=== PATIENT | male | born 1965 | race Caucasian/White ===

== ENCOUNTER 2020-04-29 10:22 | Outpatient (REF) | payer BC, SELFPAY ==
[2020-05-06 15:38] LABS: URO-Brushite 24 Hr Urine 0.22 (<2.00); URO-Calcium 24 Hr Urine 311 mg/day (<250.0); URO-Calcium Oxalat 24 Hr Urine 1.03 (<2.00); URO-Citric Acid 24 Hr Urine 1325 mg/day (>320); URO-Creatinine 24 Hr Urine 2148 mg/day (800-2000); URO-Magnesium 24 Hr Urine 118 mg/day (>60.0); URO-Oxalate 24 Hr Urine 35 mg/day (<45); URO-Phosphorus 24 Hr Urine 1423 mg/day (<1100); URO-Potassium 24 Hr Urine 62 mEq/day (19-135); URO-Sodium 24 Hr Urine 140 mEq/day (<200); URO-Sodium Urate 24 Hr Urine 0.49 (<2.00); URO-Sulfate 24 Hr Urine 19 mmol/day (<30); URO-Total Volume 3.17 L/day (>2.00); URO-Uric Acid 24 Hr Urine 3.91 (<2.00); URO-Uric Acid 24 Hr Urine 935 mg/day (<700); URO-pH 24 Hr Urine 5.2 (5.5-7.0)
== END 2020-04-29 10:23 | disposition home or self-care (01) ==
LOC: HO.10HDLNP 10:22
PROVIDERS: PCP Urology; Visit Provider Urology
DX: N40.1 Benign prostatic hyperplasia with lower urinary tract symptoms (principal); N13.8 Other obstructive and reflux uropathy; N20.0 Calculus of kidney
CPT/HCPCS: 82340; 82507; 82570; 83735; 83945; 83986; 84105; 84133; 84300; 84392; 84560

== ENCOUNTER 2020-05-02 10:18 | Outpatient (REF) | payer BC, SELFPAY ==
--- NOTE | 2020-05-02 | US_ITS ---
EXAMINATION: Renal ultrasound CLINICAL INFORMATION: Nephrolithiasis COMPARISON: KUB January 2018 TECHNIQUE: Grayscale and color imaging of the kidneys FINDINGS: The right kidney measures 13.5 x 7.2 x 7.8 cm. There is compensatory hypertrophy of the right kidney. Renal cortical thickness and echogenicity is normal. There is a 1.2 x 1.1 x 1.5 cm simple cyst in the midpole. No renal stone, hydronephrosis or mass is seen. The left kidney has been removed. IMPRESSION: Small right renal cyst. No right renal stone seen. Surgically absent left kidney.
== END 2020-05-02 10:19 | disposition home or self-care (01) ==
LOC: HO.US 10:18
PROVIDERS: Visit Provider Urology
DX: N20.0 Calculus of kidney (principal)
CPT/HCPCS: 76775

== ENCOUNTER → 2020-05-19 13:23 | Outpatient (BNVA) | payer BC, SELFPAY | PROVIDERS: Visit Provider Urology | DX: Z76.89 Persons encountering health services in other specified circumstances (principal) ==

== ENCOUNTER 2020-11-23 13:12 | Outpatient (REF) | payer BC, SELFPAY ==
--- NOTE | ~2020-11-23 | US_ITS ---
EXAMINATION: US RETROPERITONEAL LIMITED (RENAL ONLY) CLINICAL INFORMATION: Calculus of kidney. COMPARISON: Ultrasound renal 05/02/2020. X-ray KUB 02/12/2018. TECHNIQUE: Real-time imaging of the kidneys. FINDINGS: RIGHT KIDNEY: 14.3 x 6.6 x 7.4 cm (SAG x AP x TRV). The kidney is normal in size, contour, and echogenicity. Renal cortical thickness is normal. There is a 1.3 x 1.2 x 1.7 cm cyst in the lateral midpole. There is a 5 x 4 x 3 mm echogenic density with twinkle artifact and acoustic shadowing suggestive of a stone in the lower pole. No renal mass or hydronephrosis. LEFT KIDNEY: Removed. US/US renal BI IMPRESSION: Small right lower pole renal stone. Small right renal cyst..
== END 2020-11-23 13:13 | disposition home or self-care (01) ==
LOC: HO.HMGCX 13:12
PROVIDERS: Visit Provider Urology
DX: N20.0 Calculus of kidney (principal)
CPT/HCPCS: 76775

== ENCOUNTER → 2021-01-05 15:25 | Outpatient (BNVA) | payer BC, SELFPAY | PROVIDERS: PCP Internal Medicine; Visit Provider Urology ==

== ENCOUNTER → 2021-03-29 14:38 | Outpatient (BNVA) | payer BC, SELFPAY | PROVIDERS: PCP Internal Medicine; Visit Provider Urology ==

== ENCOUNTER → 2021-04-06 11:20 | Outpatient (BNVA) | payer BC, SELFPAY | PROVIDERS: PCP Internal Medicine; Visit Provider Urology ==

== ENCOUNTER 2021-04-19 14:49 | Outpatient (REF) | payer BC, SELFPAY ==
[2021-04-19 15:54] LABS: Appearance Urine CLEAR; Color Urine YELLOW; Glucose Urine UA 100 MG/DL (NEG); Leukocyte Esterase Urine NEG (NEG); Nitrite Urine NEG (NEG); Urine Blood TRACE (NEG); Urine Ketones NEG (NEG); Urine Protein NEG (NEG-TRACE)
[2021-04-19 16:01] LABS: Red Blood Cell Casts Urine 0-2 /LPF
[2021-04-19 16:02] LABS: Bacteria Urine TRACE /LPF; Mucus Urine 3+ /LPF; Squamous Epithelial Cell Urine 1+ /LPF
[2021-04-19 16:03] LABS: RBC Urine 0-2 /HPF (0); WBC Urine 0-2 /HPF (0-4)
== END 2021-04-19 14:50 | disposition home or self-care (01) ==
LOC: HO.LAB 14:49
PROVIDERS: PCP Internal Medicine; Visit Provider Urology
DX: A49.9 Bacterial infection, unspecified (principal); N39.0 Urinary tract infection, site not specified
CPT/HCPCS: 81001; 87086

== ENCOUNTER 2021-05-29 08:12 | Outpatient (REF) | payer BC, SELFPAY ==
--- NOTE | ~2021-05-29 | US_ITS ---
EXAMINATION: US RETROPERITONEAL LIMITED (RENAL ONLY) CLINICAL INFORMATION: Calculus of kidney. COMPARISON: Renal ultrasound 11/23/2020 and 05/02/2020. X-ray abdomen KUB 02/12/2018. TECHNIQUE: Real-time imaging of the kidneys. FINDINGS: RIGHT KIDNEY: 13.8 x 6.3 x 6.2 cm (SAG x AP x TRV). There is compensatory hypertrophy of the right kidney. The kidney is normal in contour, and echogenicity. Renal cortical thickness is normal. There are 2 cysts measuring 1.6 x 1.5 x 1.7 cm and 0.7 x 0.6 x 0.9 cm in the midpole. There are 2 stones measuring 0.5-0.9 cm in the lower pole. No hydronephrosis. LEFT KIDNEY: Surgically absent. The liver is echogenic. US/US renal BI IMPRESSION: Right renal stones. Right renal cysts.
== END 2021-05-29 08:13 | disposition home or self-care (01) ==
LOC: HO.US 08:12
PROVIDERS: PCP Internal Medicine; Visit Provider Urology
DX: N20.0 Calculus of kidney (principal)
CPT/HCPCS: 76775

== ENCOUNTER → 2021-07-07 08:31 | Outpatient (BNVA) | payer BC, SELFPAY | PROVIDERS: PCP Internal Medicine; Visit Provider Urology ==

== ENCOUNTER → 2021-10-11 13:51 | Outpatient (BNVA) | payer BC, SELFPAY | PROVIDERS: Visit Provider Urology | DX: C64.9 Malignant neoplasm of unspecified kidney, except renal pelvis (principal); N20.0 Calculus of kidney; E11.69 Type 2 diabetes mellitus with other specified complication; N52.1 Erectile dysfunction due to diseases classified elsewhere | CPT/HCPCS: 99212 ==

== ENCOUNTER 2022-03-07 09:24 | Outpatient (REF) | payer BC, SELFPAY ==
--- NOTE | ~2022-03-07 | US_ITS ---
EXAMINATION: US RETROPERITONEAL LIMITED (RENAL ONLY) CLINICAL INFORMATION: Calculus of kidney. COMPARISON: Renal ultrasound 05/29/2021 and 11/23/2020. X-ray KUB 02/12/2018. TECHNIQUE: Real-time imaging of the solitary right kidney. FINDINGS: RIGHT KIDNEY: 13.0 x 8.1 x 7.2 cm (SAG x AP x TRV). The kidney is normal in size, contour, and echogenicity. Renal cortical thickness is normal. There is a 5 mm echogenic density in the cortex of the lower pole questionable for stone versus cortical calcification. There are 2 cysts measuring 2 cm in the lateral lower pole and 6 mm in the medial midpole. No hydronephrosis. LEFT KIDNEY: Surgically absent. ADDITIONAL FINDINGS: The spleen is upper normal in size measuring 13 cm. US/US renal BI IMPRESSION: 2 right renal cysts. Question right lower pole renal stone versus cortical calcification..
== END 2022-03-07 09:25 | disposition home or self-care (01) ==
LOC: HO.US 09:24
PROVIDERS: Visit Provider Urology
DX: N20.0 Calculus of kidney (principal)
CPT/HCPCS: 76775

== ENCOUNTER 2022-09-21 07:33 | Outpatient (REF) | payer BC, SELFPAY ==
--- NOTE | ~2022-09-21 | US_ITS ---
EXAMINATION: US RETROPERITONEAL LIMITED (RENAL ONLY) CLINICAL INFORMATION: Calculus of kidney. COMPARISON: Renal ultrasound 03/07/2022 and 05/29/2021. X-ray KUB 02/12/2018. TECHNIQUE: Real-time imaging of the solitary right kidney. FINDINGS: RIGHT KIDNEY: 14.3 x 7.9 x 7.6 cm (SAG x AP x TRV). The kidney is normal in size, contour, and echogenicity. Two benign Bosniak class I cysts are noted, the largest in the mid kidney measuring 2.4 cm. These need no additional imaging or follow up Renal cortical thickness is normal. There is a 4 mm echogenic focus present at the lower pole consistent with a nonobstructing calculus. No hydronephrosis. LEFT KIDNEY: Surgically absent. US/US renal BI IMPRESSION: Nonobstructing 4 mm right lower pole calculus.
== END 2022-09-21 07:34 | disposition home or self-care (01) ==
LOC: HO.US 07:33
PROVIDERS: PCP Internal Medicine; Visit Provider Urology
DX: N20.0 Calculus of kidney (principal)
CPT/HCPCS: 76775

== ENCOUNTER → 2022-10-10 14:56 | Outpatient (BNVA) | payer BC, SELFPAY | PROVIDERS: PCP Internal Medicine; Visit Provider Urology | DX: Z13.89 Encounter for screening for other disorder (principal) ==

== ENCOUNTER 2022-10-25 13:14 | Outpatient (REF) | payer BC, SELFPAY ==
[2022-11-01 17:13] LABS: Stone Source KIDNEY STONE
== END 2022-10-25 13:15 | disposition home or self-care (01) ==
LOC: HO.LAB 13:14
PROVIDERS: Visit Provider Urology
DX: N20.0 Calculus of kidney (principal)
CPT/HCPCS: 82365; 88300

== ENCOUNTER 2023-04-10 07:54 | Outpatient (REF) | payer BC, SELFPAY ==
--- NOTE | ~2023-04-10 | US_ITS ---
EXAMINATION: US RETROPERITONEAL LIMITED (RENAL ONLY) CLINICAL INFORMATION: Hypercalciuria. COMPARISON: Renal ultrasound 09/21/2022 and 03/07/2022. TECHNIQUE: Real-time imaging of the solitary right kidney. FINDINGS: RIGHT KIDNEY: 13.9 x 6.1 x 7.8 cm (SAG x AP x TRV). The kidney is normal in size, contour, and echogenicity. Renal cortical thickness is normal. No hydronephrosis. At the lower pole, a 3 mm nonobstructing calculus is seen, with twinkle artifact. At the lower pole, a 2.2 cm exophytic benign, simple cyst is seen, for which no imaging follow-up is recommended. LEFT KIDNEY: Surgically absent. US/US renal BI IMPRESSION: 1. A 3 mm nonobstructing right renal calculus is seen. No hydronephrosis is noted. 2. The left kidney is surgically absent. No abnormal mass or fluid collection is seen within the left renal fossa.
== END 2023-04-10 07:55 | disposition home or self-care (01) ==
LOC: HO.US 07:54
PROVIDERS: PCP Internal Medicine; Visit Provider Urology
DX: R82.994 Hypercalciuria (principal)
CPT/HCPCS: 76775

== ENCOUNTER 2023-05-17 15:29 | Outpatient (AMB) | payer BC, SELFPAY ==
--- NOTE | 2023-05-17 15:29 | MHC.OFFVIS ---
Intake Intake Visit Reasons: 6m labs/us/litholink(set) Intake Note: Patient is Present for Telephone Follow Up Urology Med: Tadalafil, Tamsulosin, Vitamin B6 Antibiotic Allergy: None Blood Thinner: Aspirin Pharamcy: [facility] Allergies ibuprofen [IBUPROFEN] Adverse Reaction (Intermediate, Verified 10/10/22 15:06) NAUSEA IBU Allergy (Unknown, Uncoded 10/10/22 15:06) nausea and vomiting Medication List - Last Reconciled 05/17/23 by Daron West MD amlodipine 10 mg PO DAILY amlodipine-atorvastatin 10-20 mg 1 tab PO DAILY aspirin (Adult Low Dose Aspirin) 81 mg PO DAILY atorvastatin 20 mg PO DAILY dulaglutide (Trulicity) 0.75 mg subcut QWEEK dulaglutide (Trulicity) 0.75 mg subcut QWEEK hydromorphone (Dilaudid) 2 mg PO Q4H PRN 7 days indapamide 10 mg (4 x 2.5 mg) PO DAILY 90 days lisinopril 40 mg PO DAILY metformin mg PO metoprolol succinate ER 25 mg PO DAILY prednisone 20 mg PO DAILY 5 days pyridoxine (vitamin B6) 100 mg PO DAILY 90 days tadalafil 5 mg PO DAILY 90 days tamsulosin 0.4 mg PO DAILY 7 days HPI HPI Comments History of Present Illness Details Adrián is a pleasant male. He is a patient of Dr. Goncalves. He is seen for the following urologic conditions - nephrolithiasis - renal cancer - erectile dysfunction associated with diabetes Telemedicine Evaluation 15 min Consultation [employer] Randy [employer] Stable imaging Continue with indapamide 6 month follow-up within Good response to controlled diabetes with combination metformin and Trulicity States HbA1c 5.9 Baseline taking indapamide 10 mg Repeat 24 hour shows high sodium, high calcium but urine pH is alkaline Discussed sodium reduction Ultrasound with minimal stone formation Nephrolithiasis/Urolithiasis: ? They are here for further evaluation of nephrolithiasis. ? Urolithiasis was diagnosed 2008. ? The patient previously had kidney stones whose composition w unknown. ? - tx with indapamide ? - hypercalciuria ? - hyperoxaluria 24 Hr urine - 08/19 24 urine completed good volume, hypercalciuria, borderline oxalate ? 04/16 Good volume, high oxalate, high sodium. - 03/19 Urine shows good volume, high calcium at 340, high sodium Laboratory - 05/18 Ca 10 Prior treatment(s) include lithotripsy May 2009 ? 02/12 ESWL right - 04/18 USR right proximal Prior imaging includes 05/14 , a renal ultrasound, 4mm ? stone lower pole - 11/13 , a renal ultrasound 7mm right lower pole - 03/15 , a renal ultrasound NAD - 04/16 , a renal ultrasound NAD, 03/19 renal ultrasound question of 4 mm stone - 09/20 renal ultrasound 4 mm right stone - 04/20 renal ultrasound no stones ? Current therapeutic plan will be 03/16 medical management - indapamide - at 5 mg daily ? Current symptoms include none. ? Maintaining adequate fluid intake. Renal Lesion: ? The renal mass was diagnosed for 2001 ? Staging of initial cancer T1, with no positive lymph nodes - treated with laparoscopic left nephrectomy ? The diagnosis was renal cell carcinoma. ? Current symptoms include ? none. ? Follow up imaging includes abdominal CT scan - 2014 Negative ?September 2015 , renal US ? stones, KUB - no evidence of stones ?11/12 - CT no evidence of stones. ? Planned theraputic plan further surveillance with imaging and laboratory investigations appropriate for pathology findings and patient performance status. ? No current symptoms.?? 06/18 PSA 2.1 Erectile dysfunction Associated with diabetes 5 mg daily tadalafil PFSH Medical History HTN (hypertension) Hyperoxaluria Epididymitis Renal cancer Surgical History History of lithotripsy Family History Father Cancer Mother Cancer Review of Systems Const All systems reviewed & are unremarkable except as noted in HPI and below Reports no additional complaints Resp Reports no additional complaints GI Reports no additional complaints Reports as per HPI Musc Reports no additional complaints Physical Exam Telemedicine evaluation Appropriate responses Regular breathing rate and rhythm HEENT Head: Yes normal to inspection Ears: hearing grossly normal bilaterally Eyes General: appearance normal, both eyes and all related structures Neck Neck: Yes normal visual inspection Chest Chest palpation & inspection: normal inspection of the chest Resp Effort & Inspection: normal respiratory effort and able to speak in complete sentences Assessment & Plan Assessment & Plan (1) Erectile dysfunction associated with type 2 diabetes mellitus: Code(s): E11.69 - Type 2 diabetes mellitus with other specified complication; N52.1 - Erectile dysfunction due to diseases classified elsewhere (2) Renal cancer: Code(s): C64.9 - Malignant neoplasm of unspecified kidney, except renal pelvis (3) Nephrolithiasis: Comment: Hypercalciuria, hyperoxaluria Code(s): N20.0 - Calculus of kidney Plan Six month follow-up with flank Medications: Refilled indapamide 10 mg (4 x 2.5 mg) PO DAILY 360 tabs 1RF 90 days N20.0 - Calculus of kidney Patient Instructions: Imaging studies, laboratory and physical exam results were discussed and reviewed in detail. No major barriers to patient understanding were identified. An opportunity to ask questions regarding the treatment plan was provided. All questions were answered. The patient expressed understanding and agreement with the above treatment plan. The patient is aware they should contact our office by phone for worsening of their current condition or the appearance of new urologic symptoms. Compliance is encouraged with any medications and followup testing that is ordered. It is a privilege to participate in the urologic care of your patient. If you have any questions or concerns regarding treatment for the above conditions, or other urologic issues, please do not hesitate to contact me. The office telephone contact is [phone]. This note is constructed using voice recognition software. While every effort has been made to ensure accuracy diamond merchant errors may have been included. Yours sincerely, Dr Daron West MD, [facility] - Urology Providers of Expert, Compassionate Care for the Genitourinary System Telehealth Telehealth Location of provider rendering services: practice address Location of patient: address on file Patient Identification confirmed using: Name, : Yes Telehealth method: video Patient verbally consented to treatment: Yes Patient verbally consented to billing insurance company: Yes Patient informed of any privacy concerns related to visit: Yes Coding Level of Care Code Tele Est Pt Level 3 (41215) Diagnoses Erectile dysfunction associated with type 2 diabetes mellitus E11.69; N52.1 Renal cancer C64.9 Nephrolithiasis N20.0
== END 2023-05-17 16:09 | disposition home or self-care (01) ==
LOC: HO.HUSH 15:29
PROVIDERS: PCP Internal Medicine; Visit Provider Urology
DX: E11.69 Type 2 diabetes mellitus with other specified complication (principal); N52.1 Erectile dysfunction due to diseases classified elsewhere; C64.9 Malignant neoplasm of unspecified kidney, except renal pelvis; N20.0 Calculus of kidney
CPT/HCPCS: 99213

== ENCOUNTER → 2023-05-17 15:29 | Outpatient (BNVA) | payer BC, SELFPAY | PROVIDERS: PCP Internal Medicine; Visit Provider Urology ==

== ENCOUNTER 2023-11-20 14:37 | Outpatient (AMB) | payer BC, SELFPAY ==
--- NOTE | 2023-11-20 14:46 | MHC.OFFVIS ---
Intake Visit Reasons: 6m follow up Intake Note: Patient is Present for Follow Up Urology Medication: Tadalafil (Patient states he never started/Had Vitamin B6, and no longer taking Tamsulosin) Antibiotic Allergies: None Blood Thinners: Aspirin Patient is requesting a refill on Tadalafil Allergies ibuprofen [IBUPROFEN] Adverse Reaction (Intermediate, Verified 11/20/23 14:52) NAUSEA IBU Allergy (Unknown, Uncoded 11/20/23 14:52) nausea and vomiting HPI Comments Details: Adrián is a pleasant male. He is a patient of Dr. Goncalves. He is seen for the following urologic conditions - nephrolithiasis - renal cancer - erectile dysfunction associated with diabetes Imaging not completed Has had urinary symptoms with some degree of discomfort following urination On exam bogginess of prostate consistent with subclinical prostatitis Doxycycline 2 week prescription 100 mg p.o. b.i.d. Refill tadalafil 5 mg daily Good response to controlled diabetes with combination metformin and Trulicity States HbA1c 5.9 Baseline taking indapamide 10 mg Prior repeat 24 hour shows high sodium, high calcium but urine pH is alkaline Discussed sodium reduction Ultrasound with minimal stone formation Nephrolithiasis/Urolithiasis: ? They are here for further evaluation of nephrolithiasis. ? Urolithiasis was diagnosed 2008. ? The patient previously had kidney stones whose composition w unknown. ? - tx with indapamide ? - hypercalciuria ? - hyperoxaluria 24 Hr urine - 08/19 24 urine completed good volume, hypercalciuria, borderline oxalate ? 04/16 Good volume, high oxalate, high sodium. - 03/19 Urine shows good volume, high calcium at 340, high sodium Laboratory - 05/18 Ca 10 Prior treatment(s) include lithotripsy May 2009 ? 02/12 ESWL right - 04/18 USR right proximal Prior imaging includes 05/14 , a renal ultrasound, 4mm ? stone lower pole - 11/13 , a renal ultrasound 7mm right lower pole - 03/15 , a renal ultrasound NAD - 04/16 , a renal ultrasound NAD, 03/19 renal ultrasound question of 4 mm stone - 09/20 renal ultrasound 4 mm right stone - 04/20 renal ultrasound no stones ? Current therapeutic plan will be 03/16 medical management - indapamide - at 5 mg daily ? Current symptoms include none. ? Maintaining adequate fluid intake. Renal Lesion: ? The renal mass was diagnosed for 2001 ? Staging of initial cancer T1, with no positive lymph nodes - treated with laparoscopic left nephrectomy ? The diagnosis was renal cell carcinoma. ? Current symptoms include ? none. ? Follow up imaging includes abdominal CT scan - 2014 Negative ?September 2015 , renal US ? stones, KUB - no evidence of stones ?11/12 - CT no evidence of stones. ? Planned theraputic plan further surveillance with imaging and laboratory investigations appropriate for pathology findings and patient performance status. ? No current symptoms.?? 06/18 PSA 2.1 Erectile dysfunction Associated with diabetes 5 mg daily tadalafil PFSH Medical History HTN (hypertension) Hyperoxaluria Epididymitis Renal cancer Surgical History History of lithotripsy Family History Father Cancer Mother Cancer Review of Systems Const Denies chills and Denies fever(s) Card Reports no additional complaints and Denies syncope Resp Denies cough GI Denies abdominal pain and Denies heartburn Reports as per HPI and Denies change in libido Neuro Denies syncope Psych Denies change in libido Endo Denies change in libido Physical Exam Const General: cooperative, healthy appearing, comfortable and no acute distress Orientation/consciousness: patient oriented x3 HEENT Face and sinus: Yes normal facial exam Mouth: moist mucous membranes Neck Neck: Yes normal visual inspection, Yes full ROM and Yes trachea midline Chest Chest palpation & inspection: normal inspection of the chest Resp Effort & Inspection: normal respiratory effort, able to speak in complete sentences and no respiratory distress GI Inspection: Yes normal to inspection Back/Spine/Pelvis Cervical Spine: normal cervical lordosis Thoracic/Lumbar Spine: thoracic and lumbar spine normal to inspection Skin General skin exam: no rashes or lesions noted Neuro General: patient oriented x3, gait normal, tone normal and moves all extremities Extrem General: Yes normal to inspection and Yes capillary refill normal Assessment & Plan Assessment & Plan (1) Prostatitis: Code(s): N41.9 - Inflammatory disease of prostate, unspecified Category: Medical Plan One month follow-up renal ultrasound tele Orders: Orders US renal BI 1 Month N20.0 - Calculus of kidney Medications: New doxycycline hyclate 100 mg PO BID 14 days 28 tabs 0RF N41.9 - Inflammatory disease of prostate, unspecified Patient Instructions: Imaging studies, laboratory and physical exam results were discussed and reviewed in detail. No major barriers to patient understanding were identified. An opportunity to ask questions regarding the treatment plan was provided. All questions were answered. The patient expressed understanding and agreement with the above treatment plan. The patient is aware they should contact our office by phone for worsening of their current condition or the appearance of new urologic symptoms. Compliance is encouraged with any medications and followup testing that is ordered. It is a privilege to participate in the urologic care of your patient. If you have any questions or concerns regarding treatment for the above conditions, or other urologic issues, please do not hesitate to contact me. The office telephone contact is [phone]. This note is constructed using voice recognition software. While every effort has been made to ensure accuracy basketball assembler errors may have been included. Yours sincerely, Dr Daron West MD, [facility] - Urology Providers of Expert, Compassionate Care for the Genitourinary System Coding Level of Care Code Est Pt Level 4 (43072) Diagnoses Prostatitis N41.9
== END 2023-11-20 15:29 | disposition home or self-care (01) ==
PROVIDERS: PCP Internal Medicine; Visit Provider Urology
DX: N41.9 Inflammatory disease of prostate, unspecified (principal)
CPT/HCPCS: 99214

== ENCOUNTER → 2023-11-20 14:37 | Outpatient (BNVA) | payer BC, SELFPAY | PROVIDERS: PCP Internal Medicine; Visit Provider Urology ==

== ENCOUNTER 2023-12-09 08:57 | Outpatient (REF) | payer BC, SELFPAY ==
--- NOTE | ~2023-12-09 | US_ITS ---
EXAMINATION: US RETROPERITONEAL LIMITED (RENAL ONLY) CLINICAL INFORMATION: Calculus of kidney. COMPARISON: Renal ultrasound 04/10/2023 and 09/21/2022. TECHNIQUE: Real-time imaging of the solitary right kidney. FINDINGS: RIGHT KIDNEY: 13.5 x 6.7 x 8.0 cm (SAG x AP x TRV). The kidney is normal in size, contour, and echogenicity. Renal cortical thickness is normal. No hydronephrosis. 2.2 cm simple cyst in the lower pole. 0.8 cm simple cyst in the mid kidney. No follow-up imaging is recommended. 1.1 cm nonobstructing calculus in the lower pole. LEFT KIDNEY: Surgically absent. US/US renal RT IMPRESSION: Increased size of nonobstructing calculus in the lower pole right kidney measuring 11 mm, previously approximately 3-5 mm on several prior studies.
== END 2023-12-09 08:58 | disposition home or self-care (01) ==
LOC: HO.US 08:57
PROVIDERS: PCP Internal Medicine; Visit Provider Urology
DX: N20.0 Calculus of kidney (principal)
CPT/HCPCS: 76775

== ENCOUNTER 2024-04-14 08:39 | Outpatient (AMB) | payer BC, SELFPAY ==
--- NOTE | 2024-04-14 09:14 | MHC.OFFVIS ---
Intake Visit Reasons: stent removal([facility]) Intake Note: Patient is Present for Cystoscopy/Stent removal Urology Med: No longer taking Vitamin B6, Tamsulosin Antibiotic Allergy:None Blood Thinner: Aspirin Stent was placed in [place] at [facility] Patient is currenly on Antibiotics Took dose of Cipro this morning URO- G Disposable Cystoscope lot: [id number] exp:11/06/2026 Receptionist Scheduler Required: No Accompanied by: Self / Same As Patient Allergies ibuprofen [IBUPROFEN] Adverse Reaction (Intermediate, Verified 04/14/24 09:18) NAUSEA IBU Allergy (Unknown, Uncoded 04/14/24 09:18) nausea and vomiting HPI Comments Details: Adrián is a pleasant male. He is a patient of Dr. Goncalves. 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 They are here for further evaluation of nephrolithiasis. ? Urolithiasis was diagnosed 2008. ? The patient previously had kidney stones whose composition w unknown. ? - tx with indapamide ? - hypercalciuria ? - hyperoxaluria 24 Hr urine - 08/19 24 urine completed good volume, hypercalciuria, borderline oxalate ? 04/16 Good volume, high oxalate, high sodium. - 03/19 Urine shows good volume, high calcium at 340, high sodium Laboratory - 05/18 Ca 10 Prior treatment(s) include lithotripsy May 2009 ? 02/12 ESWL right - 04/18 USR right proximal - 04/21 USR right proximal Prior imaging includes 05/14 , a renal ultrasound, 4mm ? stone lower pole - 11/13 , a renal ultrasound 7mm right lower pole - 03/15 , a renal ultrasound NAD - 04/16 , a renal ultrasound NAD, 03/19 renal ultrasound question of 4 mm stone - 09/20 renal ultrasound 4 mm right stone - 04/20 renal ultrasound no stones ? Current therapeutic plan will be 03/16 medical management - indapamide - at 5 mg daily ? Current symptoms include none. ? Maintaining adequate fluid intake. Renal Lesion: ? The renal mass was diagnosed for 2001 ? Staging of initial cancer T1, with no positive lymph nodes - treated with laparoscopic left nephrectomy ? The diagnosis was renal cell carcinoma. ? Current symptoms include ? none. ? Follow up imaging includes abdominal CT scan - 2014 Negative ?September 2015 , renal US ? stones, KUB - no evidence of stones ?11/12 - CT no evidence of stones. ? Planned theraputic plan further surveillance with imaging and laboratory investigations appropriate for pathology findings and patient performance status. ? No current symptoms.?? 06/18 PSA 2.1 Erectile dysfunction Associated with diabetes 5 mg daily tadalafil Prior prostatitis responded to doxycycline PFSH Medical History HTN (hypertension) Hyperoxaluria Epididymitis Renal cancer Surgical History History of lithotripsy Family History Father Cancer Mother Cancer Review of Systems Const Denies chills and Denies fever(s) Card Reports no additional complaints and Denies syncope Resp Denies cough GI Denies abdominal pain and Denies heartburn Reports as per HPI and Denies change in libido Neuro Denies syncope Psych Denies change in libido Endo Denies change in libido Physical Exam Const General: cooperative, healthy appearing, comfortable and no acute distress Orientation/consciousness: patient oriented x3 HEENT Face and sinus: Yes normal facial exam Mouth: moist mucous membranes Neck Neck: Yes normal visual inspection, Yes full ROM and Yes trachea midline Chest Chest palpation & inspection: normal inspection of the chest Resp Effort & Inspection: normal respiratory effort, able to speak in complete sentences and no respiratory distress GI Inspection: Yes normal to inspection Back/Spine/Pelvis Cervical Spine: normal cervical lordosis Thoracic/Lumbar Spine: thoracic and lumbar spine normal to inspection Skin General skin exam: no rashes or lesions noted Neuro General: patient oriented x3, gait normal, tone normal and moves all extremities Extrem General: Yes normal to inspection and Yes capillary refill normal Office Procedures Cystoscopy Consent Discussed risk and benefit or proposed procedure with the patient. Information consent for procedure given to the patient. Discussed technical aspects, risks, benefits and alternatives in full. Addressed all of the patient's questions and concerns regarding the procedure. The patient demonstrated knowledge and understanding. They wish to proceed with this procedure. Preparation The patient was prepped in the usual manner. A billboard mechanic was present and in the room. Genitalia was prepped with betadine solution in a sterile manner. Lidocaine Jelly 2% was placed into the urethra and 16Fr flexible Olympus cystoscope was inserted into the meatus after adequate lubrication. Procedure A well lubricated 16 Pakistani cystoscope was placed No abnormality noted of urethra during placement Indwelling stent seen within bladder emerging from right ureteric orifices The stent was grasped with a 3 prong grasper and removed without difficulty The patient tolerated the procedure well [id number] with stent removal DISPOSABLE SCOPE URO-G FLEXIBLE SCOPE Procedure code (CPT) selection complete Office Meds lidocaine HCl 2 % mucosal jelly in applicator Performing Provider: Daron West MD Performing Location: [facility] Administered by: Rickey Suarez LPN on 04/14/24 09:37 Dose Route Admin Location Dispensed Lot Number Expiration Date FORMERLY NAMED [facility] Senior Search Marketing Analyst 10 mL intra-urethral 10 mL nitrofurantoin monohydrate/macrocrystals 100 mg capsule Performing Provider: Daron West MD Performing Location: [facility] Documented (not given) by: Rickey Suarez LPN on 04/14/24 09:37 Reason Not Given: Not Medically Necessary naproxen 500 mg tablet Performing Provider: Daron West MD Performing Location: [facility] Administered by: Rickey Suarez LPN on 04/14/24 09:37 Dose Route Admin Location Dispensed Lot Number Expiration Date FORMERLY NAMED [facility] Senior Search Marketing Analyst 500 mg PO 1 tab Results AMB Urinalysis, Automated UA Leukoctes 0 Khoa/uL Last Edit by MIKE Mock on 04/14/24 09:35 UA Nitrite Negative Last Edit by MIKE Mock on 04/14/24 09:35 UA Urobilinogen 0.2 mg/dL Last Edit by Ellen Beltran, RMA on 04/14/24 09:35 UA Protein 30 mg/dL Last Edit by Ellne Beltran RMA on 04/14/24 09:35 UA pH 5.5 Last Edit by Ellen Beltran, RMA on 04/14/24 09:35 UA Blood 200 David/uL Last Edit by Ellen Beltran, RMA on 04/14/24 09:35 UA Specific [place] 1.020 Last Edit by Ellen Beltran, RMA on 04/14/24 09:35 UA Ketone Negative Last Edit by Ellen Beltran, RMA on 04/14/24 09:35 UA Bilirubin 0 mg/dL Last Edit by Ellen Beltran, RMA on 04/14/24 09:35 UA Glucose 500 mg/dL Last Edit by Ellen Beltran, RMA on 04/14/24 09:35 Results Reviewed Results Reviewed: Laboratory Last Values Urine pH (Auto) 5.5 04/14/24 09:19 Specific [place] (Auto) 1.020 04/14/24 09:19 Urine Protein (Auto) 30 mg/dL 04/14/24 09:19 Glucose (UA)(Auto) 500 mg/dL 04/14/24 09:19 Urine Ketones (Auto) Negative 04/14/24 09:19 Urine Blood (Auto) 200 David/uL 04/14/24 09:19 Urine Nitrite (Auto) Negative 04/14/24 09:19 Urine Bilirubin (Auto) 0 mg/dL 04/14/24 09:19 Urine Urobilinogen (Auto) 0.2 mg/dL 04/14/24 09:19 Leukocyte Esterase (Auto) 0 Khoa/uL 04/14/24 09:19 Assessment & Plan Assessment & Plan (1) Hypercalciuria: Code(s): R82.994 - Hypercalciuria Category: Medical (2) Nephrolithiasis: Comment: Hypercalciuria, hyperoxaluria Code(s): N20.0 - Calculus of kidney Category: Medical Plan Two month follow-up renal ultrasound in Uro risk Orders: Orders AMB Cystoscopy Today N20.0 - Calculus of kidney AMB Urinalysis Automated Today Z13.9 - Encounter for screening, unspecified Patient Instructions: Imaging studies, laboratory and physical exam results were discussed and reviewed in detail. No major barriers to patient understanding were identified. An opportunity to ask questions regarding the treatment plan was provided. All questions were answered. The patient expressed understanding and agreement with the above treatment plan. The patient is aware they should contact our office by phone for worsening of their current condition or the appearance of new urologic symptoms. Compliance is encouraged with any medications and followup testing that is ordered. It is a privilege to participate in the urologic care of your patient. If you have any questions or concerns regarding treatment for the above conditions, or other urologic issues, please do not hesitate to contact me. The office telephone contact is [phone]. This note is constructed using voice recognition software. While every effort has been made to ensure accuracy it infrastructure engineer errors may have been included. Yours sincerely, Dr Daron West MD, RONEY [facility] - Urology Providers of Expert, Compassionate Care for the Genitourinary System Coding Level of Care Code Est Pt Level 3 (59142) Diagnoses Hypercalciuria R82.994 Nephrolithiasis N20.0 CPT Codes Cystoscopy - CPT: 73365-[id number] with stent removal ([id number])
== END 2024-04-14 10:21 | disposition home or self-care (01) ==
PROVIDERS: PCP Internal Medicine; Visit Provider Urology
DX: R82.994 Hypercalciuria (principal); N20.0 Calculus of kidney; Z13.9 Encounter for screening, unspecified; Z96.0 Presence of urogenital implants
CPT/HCPCS: 52310; 99213

== ENCOUNTER → 2024-04-14 08:39 | Outpatient (BNVA) | payer BC, SELFPAY | PROVIDERS: PCP Internal Medicine; Visit Provider Urology | DX: Z46.6 Encounter for fitting and adjustment of urinary device (principal); N20.0 Calculus of kidney; R82.994 Hypercalciuria; N52.9 Male erectile dysfunction, unspecified; Z79.899 Other long term (current) drug therapy | CPT/HCPCS: 52310; 81003 ==

== ENCOUNTER 2024-06-01 08:30 | Outpatient (REF) | payer BC, SELFPAY | END 2024-06-01 08:31 | disposition home or self-care (01) | LOC: HO.US 08:30 | PROVIDERS: PCP Internal Medicine; Visit Provider Urology | DX: N20.0 Calculus of kidney (principal) | CPT/HCPCS: 76775 ==

== ENCOUNTER 2024-06-16 09:25 | Outpatient (AMB) | payer BC, SELFPAY ==
--- NOTE | 2024-06-16 09:27 | MHC.OFFVIS ---
Intake Visit Reasons: 2M US/PSA(set) Intake Note: Patient is present for PSA/Ultrasound follow up Urology Med: Tadalafil, Indapamide Antibiotic Allergy: None Blood Thinner: Aspirin 06/01/2024 Labs: PSA-2.9 Hemoglobin A1C- 8.6 Renal Ultrasound- 06/01/24 Patient reports he is no longer on both Tamsulosin and Vitamin B6 Casing Tier Required: No Accompanied by: Self / Same As Patient Allergies ibuprofen [IBUPROFEN] Adverse Reaction (Intermediate, Verified 06/16/24 09:28) NAUSEA IBU Allergy (Unknown, Uncoded 06/16/24 09:28) nausea and vomiting HPI Comments Details: Adrián is a pleasant male. He is a patient of Dr. Goncalves. He is seen for the following urologic conditions - nephrolithiasis - renal cancer - erectile dysfunction associated with diabetes Telemedicine Evaluation 15 min Consultation Photonic Materials Randy Video Good response to controlled diabetes with combination metformin and Trulicity States HbA1c 5.9 Baseline taking indapamide 10 mg Six-month follow-up ultrasound Nephrolithiasis/Urolithiasis: ? They are here for further evaluation of nephrolithiasis. ? Urolithiasis was diagnosed 2008. ? The patient previously had kidney stones whose composition w unknown. ? - tx with indapamide ? - hypercalciuria ? - hyperoxaluria 24 Hr urine - 08/19 24 urine completed good volume, hypercalciuria, borderline oxalate ? 04/16 Good volume, high oxalate, high sodium. - 03/19 Urine shows good volume, high calcium at 340, high sodium Laboratory - 05/18 Ca 10 Prior treatment(s) include lithotripsy May 2009 ? 02/12 ESWL right - 04/18 USR right proximal - 04/21 USR right proximal Prior imaging includes 05/14 , a renal ultrasound, 4mm ? stone lower pole - 11/13 , a renal ultrasound 7mm right lower pole - 03/15 , a renal ultrasound NAD - 04/16 , a renal ultrasound NAD, 03/19 renal ultrasound question of 4 mm stone - 09/20 renal ultrasound 4 mm right stone - 04/20 renal ultrasound no stones ? Current therapeutic plan will be 03/16 medical management - indapamide - at 5 mg daily ? Current symptoms include none. ? Maintaining adequate fluid intake. Renal Lesion: ? The renal mass was diagnosed for 2001 ? Staging of initial cancer T1, with no positive lymph nodes - treated with laparoscopic left nephrectomy ? The diagnosis was renal cell carcinoma. ? Current symptoms include ? none. ? Follow up imaging includes abdominal CT scan - 2014 Negative ?September 2015 , renal US ? stones, KUB - no evidence of stones ?11/12 - CT no evidence of stones. ? Planned theraputic plan further surveillance with imaging and laboratory investigations appropriate for pathology findings and patient performance status. ? No current symptoms.?? 06/18 PSA 2.1 Erectile dysfunction Associated with diabetes 5 mg daily tadalafil Prior prostatitis responded to doxycycline PFSH Medical History HTN (hypertension) Hyperoxaluria Epididymitis Renal cancer Surgical History History of lithotripsy Family History Father Cancer Mother Cancer Review of Systems Const All systems reviewed & are unremarkable except as noted in HPI and below Reports no additional complaints Resp Reports no additional complaints GI Reports no additional complaints Reports as per HPI Musc Reports no additional complaints Physical Exam Telemedicine evaluation Appropriate responses Regular breathing rate and rhythm HEENT Head: Yes normal to inspection Ears: hearing grossly normal bilaterally Eyes General: appearance normal, both eyes and all related structures Neck Neck: Yes normal visual inspection Chest Chest palpation & inspection: normal inspection of the chest Resp Effort & Inspection: normal respiratory effort and able to speak in complete sentences Telehealth Telehealth Telehealth Platform: [facility] Location of provider rendering services: practice address Location of patient: address on file Patient Identification confirmed using: Name, : Yes Telehealth method: video Patient verbally consented to treatment: Yes Patient verbally consented to billing insurance company: Yes Patient informed of any privacy concerns related to visit: Yes Minutes spent on Phone/Video with Pt.: 15 Assessment & Plan Assessment & Plan (1) Nephrolithiasis: Comment: Hypercalciuria, hyperoxaluria Code(s): N20.0 - Calculus of kidney Category: Medical (2) Renal cancer: Code(s): C64.9 - Malignant neoplasm of unspecified kidney, except renal pelvis Category: Medical Plan six-month follow-up ultrasound Orders: Orders US renal BI 6 Months N20.0 - Calculus of kidney Patient Instructions: Imaging studies, laboratory and physical exam results were discussed and reviewed in detail. No major barriers to patient understanding were identified. An opportunity to ask questions regarding the treatment plan was provided. All questions were answered. The patient expressed understanding and agreement with the above treatment plan. The patient is aware they should contact our office by phone for worsening of their current condition or the appearance of new urologic symptoms. Compliance is encouraged with any medications and followup testing that is ordered. It is a privilege to participate in the urologic care of your patient. If you have any questions or concerns regarding treatment for the above conditions, or other urologic issues, please do not hesitate to contact me. The office telephone contact is [phone]. This note is constructed using voice recognition software. While every effort has been made to ensure accuracy ornamental metal worker helper errors may have been included. Yours sincerely, Dr Daron West MD, RONEY [facility] - Urology Providers of Expert, Compassionate Care for the Genitourinary System Coding Level of Care Code Tele Est Pt Level 3 (18252) Diagnoses Nephrolithiasis N20.0 Renal cancer C64.9
== END 2024-06-16 10:14 | disposition home or self-care (01) ==
LOC: HO.HUSH 09:25
PROVIDERS: PCP Internal Medicine; Visit Provider Urology
DX: N20.0 Calculus of kidney (principal); C64.9 Malignant neoplasm of unspecified kidney, except renal pelvis
CPT/HCPCS: 99213

== ENCOUNTER → 2024-06-16 09:25 | Outpatient (BNVA) | payer BC, SELFPAY | PROVIDERS: PCP Internal Medicine; Visit Provider Urology ==

== ENCOUNTER 2025-02-01 15:19 | Outpatient (REF) | payer BC, SELFPAY ==
--- OUTSIDE RECORDS SUMMARY | 2024-04-07 10:00 | XMS_ITS ---
Author Organization [facility] [place] [address] Care Team Providers Care Apple Sorter Name Role Phone UNKNOWN, UNKNOWN Primary Care Provider Unavailab Fabian Montana Unavailable [phone] REASON FOR VISIT [facility] Encounters Encounter Location Date Provider Diagnosis [facility] [address] [place] [address] [place] [address] 04/07/2024 Fabian Tyler Plan Of Treatment No Information Progress Notes * Adrián FUNEZDOB:1965 ( 60 yo M)Acc No.[id number]:04/07/2024 UNLOCKED PROGRESS NOTE OR Surgery Patient: Adrián MCGARRY Provider: Analilia Tyler MD :1965 A ge:59 Y S ex:Male Date:04/07/2024 [address] [place] Pcp:UNKNOWN UNKNOWN Subjective: * Chief Complaints: * 1 . URS LL. * Medical History: Objective: * Vitals: Assessment: Plan: * Treatment: * Billing Information: * Visit Code: * Procedure Codes: * Electronic signature of Tutu Tyler MD on 02/01/2025 at 03:37 PM EDT Sign off status: Pending * Provider: Analilia Tyler MD Date: 04/07/2024 Generated for Felisha pisano/Vasquez/Veronicaitting on: 02/01/2025 03:37 PM EDT
--- NOTE | ~2025-02-01 | US_ITS ---
EXAMINATION: US KIDNEY BILATERAL HISTORY: N20.0 - Calculus of kidney TECHNIQUE: Real-time grayscale ultrasound imaging of the kidneys was performed and images were reviewed. COMPARISON: Comparison is made with the prior examination dated 06/12/2024. FINDINGS: Right kidney: The right kidney measures 14.2 x 7.3 x 6.3 cm. Renal parenchymal echotexture and thickness are normal. There is a 2.9 x 2.4 x 2.0 cm cyst at the lower pole. A tiny echogenic focus in the interpolar region could represent a tiny calculus. There is slight fullness of the renal pelvis. Left Kidney: The left kidney is surgically absent. US/US renal BI IMPRESSION: 2.9 x 2.4 x 2.0 cm right lower pole renal cyst. Possible punctate calculus at the lower pole. Mild fullness of the collecting system without hydronephrosis. Electronically signed by: Truong Zarate MD 02/02/2025 06:59 AM EDT
--- OUTSIDE RECORDS SUMMARY | 2025-02-01 15:38 | XMS_ITS | Clinical Summary ---
Author Organization [facility] Address [address] [place] [address] Care Team Providers Care Hair Designer Name Role Phone Pcp, No Unavailable Unavailable Social History Tobacco Use Types Packs/Day Years Used Date Smoking Tobacco: Never Assessed Sex and Gender Information Value Date Recorded Sex Assigned at Not on file Legal Sex Male 10:24 AM EDT Gender Identity Not on file Sexual Orientation Not on file Plan of Treatment Health Maintenance Due Date Last Done Comments Depression Screening 1976 HIV Screening with Documented Verbal Consent 9 Colonoscopy 01/28/1982 Colorectal Cancer Screening 01/28/1982 Hepatitis C Screening 01/28/1982 TDAP/TD Vaccine 18+ 01/28/1982 CT Colonography 1984 FIT 1984 Sigmoidoscopy 1984 Stool DNA 1984 Lipid Screening 01/28/1999 Eligibility Review for Prost ate Cancer Screenin-69 years 01/28/2014 Herpes Zoster Vaccine (1 of 2) 01/28/2014 Pneumococcal: 50 + Immunizat ion Scheduling (1 of 1 - PCV) 01/28/2014 COVID-19 Vaccine ( season) 2024 Influenza Vaccine (#1) 2025 Care Teams Hair Designer Relationship Specialty Start Date End Date Pcp, No PCP - Generic [facility] PCP 01/10/24
--- OUTSIDE RECORDS SUMMARY | 2025-02-01 15:38 | XMS_ITS | Encounter Summary ---
Author Organization [facility] Address [address] [place] [address] Care Team Providers Care Medical Claims Specialist Name Role Phone Pcp, No Primary Care Provider Unavailabl e Encounter Details Date Type Department Care Team (Late st Contact Info) Description 06/07/2020 Lab Requisition [facility] [address] [place] [address] Fabian Mckeon PA-C [address] [place], [place] [address] Encounter for laboratory testing for COVID-19 virus Social History Tobacco Use Types Packs/Day Years Used Date Smoking Tobacco: Never Assessed Sex and Gender Information Value Date Recorded Sex Assigned at Not on file Legal Sex Male 11:44 AM EST Gender Identity Not on file Sexual Orientation Not on file documented as of this encounter Plan of Treatment Not on file documented as of this encounter Procedures Procedure Name Priority Date/Time Associated Diagnosis Comments COVID-19 RT-PCR ([facility]) Routine 06/07/2020 4:43 PM EST Encounter for laboratory testing for COVID-19 virus [ICD-10-CM] documented in this encounter Results * COVID-19 RT-PCR ([facility]) (06/07/2020 4:43 PM EST) COVID-19 RT-PCR SARS-COV-2 NOT DETECTED Not Detected 06/09/2020 4:10 PM EST Comput[employer] Comment: ADDITIONAL INFORMATION The JIAN COVID-19 RT-PCR Assay is Real-Time Reverse Assistant Child Care Teacher Polymerase Chain Reaction (dietetics professor-PCR) for the in vitro qualitative detection of three SARS-Cov-2 target sequences unique to the coronavirus disease 2019 (COVID-19). This is an Emergency Use Authorization (EUA) in vitro diagnostic (IVD) test that has been modified to include the Duogou automated liquid handler. Its analytical performance characteristics have been determined by the regulatory affairs manager and verified by [facility] in a manner consistent with CLIA requirements. This test may be used for clinical purposes and should not be regarded as purely investigational or for research use only. This laboratory is certified under the Clinical Laboratory Improvement Amendments of 1988 (CLIA) as qualified to perform high complexity clinical testing. Reference interval for this testing is SARS-CoV-2 Not Detected. Fact sheets for this Emergency Use Authorization assay can be found at the following links: For Healthcare Providers: https://www.fda.gov/media/624282/download For Patients: https://www.[place].gov/media/659821/download TEST LIMITATIONS Positive results are indicative of the presence of SARS-CoV-2 RNA; clinical correlation with patient history and other diagnostic information is necessary to determine patient infection status. Positive results do not rule out bacterial infection or co-infection with other viruses. The agent detected may not be the definite cause of disease. Negative results do not exclude SARS-CoV-2 infection and should not be used as the sole basis for patient management decisions. Negative results must be combined with clinical observations, patient history, and epidemiological information. Improper sample collection, transport or storage may impede the ability of the assay to detect target sequences. Inconclusive specimens are not repeated, and recollection and submission of a new sample is recommended. The performance of the TaqPath COVID-19 Combo Kit was established using nasopharyngeal swab, nasopharyngeal aspirate, and bronchoalveolar lavage (BAL) specimens. The limit of detection for the assay was determined to be 0.75copies/uL in the specimens of nasopharyngeal swab. Other specimen types may be need for further validation before testing on this system. For further details refer to the [employer] TaqPath COVID-19 Combo Kit EUA submission (https://www.[place].gov/media/750048/download). ----- Test performed by [facility], [address] [place] [id number] CLIA# [id number] Gold Urbina M.D., Ph.D., [facility], Clinical Labor And Employment Paralegal Microbiology Nasopharyngeal swab / Unknown 06/07/2020 4:43 PM EST 06/07/2020 4:43 PM EST Narrative [facility] - 06/09/2020 4:10 PM EST Performed at [facility], [address] [place] [address], [facility] 0695, CLIA [id number] Fabian Mckeon PA-C MICROBIOLOGY - GENERAL OR DERABLES Final Result [address] [place] [address] documented in this encounter Visit Diagnoses Diagnosis Encounter for laboratory testing for COVID-19 virus documented in this encounter Care Teams Medical Claims Specialist Relationship Specialty Start Date End Date Pcp, No PCP - General General Medicine 02/04/21 documented as of this encounter
--- OUTSIDE RECORDS SUMMARY | 2025-02-01 15:38 | XMS_ITS | Clinical Summary ---
Author Organization [facility] Address [address] [place] [id number] Care Team Providers Care Document Manager Name Role Phone Delmar Goncalves Primary Care Provider Allergies Active Allergy Reactions Criticality Noted Date Comments Ibuprofen Other (See Comments) 03/29/2021 nausea Medications metFORMIN (GLUCOPHAGE) 500 MG tablet Take 500 mg by mouth 2 times a day with breakfast & dinner. Active cholecalciferol , vitamin D3, (VITAMIN D3) 50 mcg (2,000 unit) cap Take by mouth. Activ e aspirin 81 MG EC tablet Take 81 mg by mouth daily. Active metoprolol ER (TOPROL-XL) 25 MG 24 hr tablet Take 25 mg by mouth daily. Active indapamide (LOZOL) 2.5 MG tablet Take 2.5 mg by mouth every morning. Active fluticasone propionate (FLONASE) 50 mcg/actuation nasal spray 1 spray by Each Nare route daily. Active amLODIPine (NORVASC) 10 MG tablet Take 10 mg by mouth daily. Active atorvaSTATin (LIPITOR) 20 MG tablet Take 20 mg by mouth at bedtime. Active lisinopriL (ZestriL) 40 MG tablet Take 40 mg by mouth daily. Active multivitamin capsule Take 1 capsule by mouth daily. Active omega-3 fatty acids/fish oil (fish oil-omega-3 fatty acids) 300-1,000 mg capsule Take 2 g by mouth daily. Active ciprofloxacin (CIPRO) 500 MG tablet Take 500 mg by mouth every morning & every evening. Active phenazopyridine (PYRIDIUM) 200 MG tablet Take 200 mg by mouth 3 times a day as needed for pain. Active traMADoL (ULTRAM) 50 mg tablet Take 50 mg by mouth every 6 hours as needed for pain. Active ondansetron (ZOFRAN) 4 MG tablet Take 4 mg by mouth every 8 hours as needed for nausea. Active acetaminophen (TYLENOL) 325 MG tablet Take 650 mg by mouth every 6 hours. Active Active Problems Problem Noted Date Diagnosed Date H/O renal cell carcinoma 03/29/2021 Right ureteral stone 03/29/2021 Recurrent nephrolithiasis 03/29/2021 Ureteral stricture, right 03/29/2021 Family History Medical History Relation Comments Cancer Father prostate Cancer Mother pancreativ Relation Status Comments Father Mother Social History Tobacco Use Types Packs/Day Years Used Date Smoking Tobacco: Never Smokeless Tobacco: Never Alcohol Use Standard Drinks/Week Comments Yes 0 (1 standard drink = 0.6 oz pur e alcohol) Sex and Gender Information Value Date Recorded Sex Assigned at Not on file Legal Sex Male 12:00 PM EDT Gender Identity Not on file Sexual Orientation Not on file Last Filed Vital Signs Vital Sign Reading Time Taken Comments Blood Pressure - - Pulse - - Temperature - - Respiratory Rate - - Oxygen Saturation - - Inhaled Oxygen Concentration - - Weight 120 kg (265 lb) 03/29/2021 9:40 AM EDT Height 188 cm (6' 2 ) 03/29/2021 9:40 AM EDT Body Mass Index 34.02 03/29/2021 9:40 AM EDT Plan of Treatment Not on file Insurance Care Teams Document Manager Relationship Specialty Start Date End Date Delmar Goncalves PCP - General 03/27/21
== END 2025-02-01 15:20 | disposition home or self-care (01) ==
LOC: HO.US 15:19
PROVIDERS: PCP Internal Medicine; Visit Provider Urology
DX: N20.0 Calculus of kidney (principal)
CPT/HCPCS: 76775

== ENCOUNTER → 2025-02-01 15:23 | Outpatient (BNV) | payer BC, SELFPAY | PROVIDERS: PCP Internal Medicine; Visit Provider Radiology Diagnostic Radiology | DX: N28.1 Cyst of kidney, acquired (principal) | CPT/HCPCS: 76775 ==

== ENCOUNTER 2025-03-02 10:17 | Outpatient (AMB) | payer BC, SELFPAY ==
--- OUTSIDE RECORDS SUMMARY | 2024-04-07 10:00 | XMS_ITS ---
Author Organization [facility] [place] [address] Care Team Providers Care Piercer Name Role Phone UNKNOWN, UNKNOWN Primary Care Provider Unavailab Fabian Montana Unavailable [phone] REASON FOR VISIT URS [facility] Encounters Encounter Location Date Provider Diagnosis [facility] [address] [place] [address] [place] [address] 04/07/2024 Fabian Tyler Plan Of Treatment No Information Progress Notes * Adrián FUNEZDOB:1965 ( 60 yo M)Acc No.[id number]:04/07/2024 UNLOCKED PROGRESS NOTE OR Surgery Patient: Adrián MCGARRY Provider: Analilia Tyler MD :1965 A ge:59 Y S ex:Male Date:04/07/2024 [address] [id number] Pcp:UNKNOWN UNKNOWN Subjective: * Chief Complaints: * 1 . URS LL. * Medical History: Objective: * Vitals: Assessment: Plan: * Treatment: * Billing Information: * Visit Code: * Procedure Codes: * Electronic signature of Tutu Tyler MD on 03/02/2025 at 10:50 AM EDT Sign off status: Pending * Provider: Analilia Tyler MD Date: 0 04/07/2024 Generated for Felisha pisano/Vasquez/Veronicaitting on: 0 03/02/2025 10:50 AM EDT
--- NOTE | 2025-03-02 10:17 | MHC.OFFVIS ---
Intake Visit Reasons: 6m/US Intake Note: Patient is present for 6 mo follow up Urology Med: Tadalafil Antibiotic Allergy: None Blood Thinner: Aspirin Renal Ultrasound- 02/01/2025 Blending Technician Required: No Accompanied by: Self / Same As Patient Allergies ibuprofen (IBUPROFEN) Adverse Reaction (Intermediate, Verified 06/16/24 09:28) NAUSEA IBU Allergy (Unknown, Uncoded 06/16/24 09:28) nausea and vomiting HPI Comments Details: Adrián is a pleasant male. He is a patient of Dr. Goncalves. He is seen for the following urologic conditions - nephrolithiasis - renal cancer - erectile dysfunction associated with diabetes Telemedicine Evaluation 15 min Consultation Lingu[facility] Randy Video Discussed ultrasound. No evidence of stones. Continue with adequate fluids and indapamide. Time to repeat 24 urine Good response to controlled diabetes with combination metformin and Trulicity States HbA1c 5.9 Baseline taking indapamide 10 mg Six-month follow-up ultrasound Nephrolithiasis/Urolithiasis: ? They are here for further evaluation of nephrolithiasis. ? Urolithiasis was diagnosed 2008. ? The patient previously had kidney stones whose composition w unknown. ? - tx with indapamide ? - hypercalciuria ? - hyperoxaluria 24 Hr urine - 04/16 Good volume, high oxalate, high sodium. - 08/19 24 urine completed good volume, hypercalciuria, borderline oxalate - 03/19 Urine shows good volume, high calcium at 340, high sodium Laboratory - 05/18 Ca 10 Prior treatment(s) include lithotripsy May 2009 ? 02/12 ESWL right - 04/18 USR right proximal - 04/21 USR right proximal Prior imaging includes 05/14 , a renal ultrasound, 4mm ? stone lower pole - 11/13 , a renal ultrasound 7mm right lower pole - 03/15 , a renal ultrasound NAD - 04/16 , a renal ultrasound NAD, 03/19 renal ultrasound question of 4 mm stone - 09/20 renal ultrasound 4 mm right stone - 04/20 renal ultrasound no stones - 02/19 renal ultrasound right renal cyst 2 cm no stones ? Current therapeutic plan will be 03/16 medical management - indapamide - at 5 mg daily ? Current symptoms include none. ? Maintaining adequate fluid intake. Renal Lesion: ? The renal mass was diagnosed for 2001 ? Staging of initial cancer T1, with no positive lymph nodes - treated with laparoscopic left nephrectomy ? The diagnosis was renal cell carcinoma. ? Current symptoms include ? none. ? Follow up imaging includes abdominal CT scan - 2014 Negative ?September 2015 , renal US ? stones, KUB - no evidence of stones ?11/12 - CT no evidence of stones. ? Planned theraputic plan further surveillance with imaging and laboratory investigations appropriate for pathology findings and patient performance status. ? No current symptoms.?? 06/18 PSA 2.1 Erectile dysfunction Associated with diabetes 5 mg daily tadalafil Prior prostatitis responded to doxycycline PFSH Medical History HTN (hypertension) Hyperoxaluria Epididymitis Renal cancer Surgical History History of lithotripsy Family History Father Cancer Mother Cancer Review of Systems Const All systems reviewed & are unremarkable except as noted in HPI and below Reports no additional complaints Resp Reports no additional complaints GI Reports no additional complaints Reports as per HPI Musc Reports no additional complaints Physical Exam Telemedicine evaluation Appropriate responses Regular breathing rate and rhythm HEENT Head: Yes normal to inspection Ears: hearing grossly normal bilaterally Eyes General: appearance normal, both eyes and all related structures Neck Neck: Yes normal visual inspection Chest Chest palpation & inspection: normal inspection of the chest Resp Effort & Inspection: normal respiratory effort and able to speak in complete sentences Telehealth Telehealth Telehealth Platform: [facility] Location of provider rendering services: practice address Location of patient: address on file Patient Identification confirmed using: Name, : Yes Telehealth method: video Patient verbally consented to treatment: Yes Patient verbally consented to billing insurance company: Yes Patient informed of any privacy concerns related to visit: Yes Assessment & Plan Assessment & Plan (1) Nephrolithiasis: Comment: Hypercalciuria, hyperoxaluria Code(s): N20.0 - Calculus of kidney Category: Medical (2) Renal cancer: Code(s): C64.9 - Malignant neoplasm of unspecified kidney, except renal pelvis Category: Medical Plan Six-month follow-up renal ultrasound Orders: Orders US renal BI 6 Months R82.994 - Hypercalciuria Medications: Refilled indapamide 10 mg (4 x 2.5 mg) PO DAILY 360 tabs 3RF 90 days N20.0 - Calculus of kidney Patient Instructions: This note is constructed using voice recognition software. While every effort has been made to ensure accuracy vp of global marketing errors may have been included. Imaging studies, laboratory and physical exam results were discussed and reviewed in detail. No major barriers to patient understanding were identified. An opportunity to ask questions regarding the treatment plan was provided. All questions were answered. The patient expressed understanding and agreement with the above treatment plan. The patient is aware they should contact our office by phone for worsening of their current condition or the appearance of new urologic symptoms. Compliance is encouraged with any medications and followup testing that is ordered. It is a privilege to participate in the urologic care of your patient. If you have any questions or concerns regarding treatment for the above conditions, or other urologic issues, please do not hesitate to contact me. The office telephone contact is [phone]. Sincerely, Dr Daron West MD, [facility] - Urology Compassionate Specialist Care for the Genitourinary System Coding Level of Care Code Tele Est Pt Level 3 (29810) Complex EM visit Add On G2211 Diagnoses Nephrolithiasis N20.0 Renal cancer C64.9
--- OUTSIDE RECORDS SUMMARY | 2025-03-02 10:51 | XMS_ITS | Encounter Summary ---
Author Organization [facility] Address [address] [place] [address] Care Team Providers Care Capacitor Tester Name Role Phone Pcp, No Primary Care Provider Unavailabl e Encounter Details Date Type Department Care Team (Late st Contact Info) Description 04/07/2020 Lab Requisition [facility] [address] [place] [address] Fabian Mckeon PA-C [address], [place] [address] Encounter for laboratory testing for COVID-19 virus [...] Procedure Name Priority Date/Time Associated Diagnosis Comments (REPORT) SARS COV-2 RNA (COVID-19), QUAL Routine 04/07/2020 2:19 PM EDT Encounter for laboratory testing for COVID-19 virus [ICD-10-CM] documented in this encounter Results * SARS CoV-2 RNA (COVID-19), Qual (04/07/2020 2:19 PM EDT) SARS CoV 2 RNA, Qual NOT DETECTED NOT DETECTED 04/10/2020 5:00 AM EDT [facility] Comment: A Not Detected (negative) test result for this test means that SARS-CoV-2 RNA was not present in the specimen above the limit of detection. A negative result does not rule out the possibility of COVID-19 and should not be used as the sole basis for treatment or patient management decisions. If COVID-19 is still suspected, based on exposure history together with other clinical findings, re-testing should be considered in consultation with public health authorities. Laboratory test results should always be considered in the context of clinical observations and epidemiological data in making a final diagnosis and patient management decisions. REFERENCE RANGE: NOT DETECTED This patient specimen was tested using an FDA EUA pooling method. Negative results from pooled testing should not be treated as definitive. If the patient's clinical signs and symptoms are inconsistent with a negative result or results are necessary for patient management, then the patient should be considered for individual testing. Specimens with low viral loads may not be detected in sample pools due to the decreased sensitivity of pooled testing. Please review the Fact Sheets and FDA authorized labeling available for health care providers and patients using the following websites: [email or web address]/[email or web address]/ fact-sheet [email or web address]/[email or web address]/ fact-sheet.html This test has been authorized by the FDA under an Emergency Use Authorization (EUA) for use by authorized laboratories. Due to the current public health emergency, [facility] is receiving a high volume of samples from a wide variety of swabs and media for COVID-19 testing. In order to serve patients during this public health crisis, samples from appropriate clinical sources are being tested. Negative test results derived from specimens received in non-commercially manufactured viral collection and transport media, or in media and sample collection kits not yet authorized by FDA for COVID-19 testing should be cautiously evaluated and the patient potentially subjected to extra precautions such as additional clinical monitoring, including collection of an additional specimen. Methodology: Nucleic Acid Amplification Test (NAAT) includes PCR or TMA Additional information about COVID-19 can be found at the [facility] website: www.[email or web address]. Microbiology Nasopharyngeal swab / Unknown 04/07/2020 2:19 PM EDT 04/07/2020 2:19 PM EDT Narrative [facility] - 04/10/2020 5:00 AM EDT Performing Organization Information: Site ID: [id number] Name: [facility] Address: [address] [place] [address],[place] [address] Director: JAME ERICKSON MD [facility] License number [id number] Fabian Mckeon PA-C BODY FLUIDS AND STOOLS OR DERABLES Final Result Performing Organization Address City/State/[facility] Co de Phone Number [facility] documented in this encounter Visit Diagnoses Diagnosis Encounter for laboratory testing for COVID-19 virus documented in this encounter Care Teams Capacitor Tester Relationship Specialty Start Date End Date Pcp, No PCP - General General Medicine 02/04/21 documented as of this encounter
== END 2025-03-02 10:56 | disposition home or self-care (01) ==
LOC: HO.HUSH 10:17
PROVIDERS: PCP Internal Medicine; Visit Provider Urology
DX: N20.0 Calculus of kidney (principal); C64.9 Malignant neoplasm of unspecified kidney, except renal pelvis
CPT/HCPCS: 99213